=== PATIENT | female | born 1960 | race Caucasian/White ===

== ENCOUNTER 2018-05-04 13:45 | Outpatient (CLI) | payer MEDICARE, MEDICAID ==
--- NOTE | 2018-05-04 15:32 | RAD ---
TWO VIEWS OF THE CHEST: 05/04/18 COMPARISON: 03/09/13. HISTORY: Dyspnea. FINDINGS: Stable prominence of aortic arch. Azygos lobe and fissure again noted. No pneumothorax or pleural flu id. No focal consolidation or alveolar edema. Stable mild interstitial prominence with pulmonary hype rinflation. IMPRESSION: Stable chronic findings as described above. No acute findings are seen. POS: [facility]
== END 2018-05-04 13:46 | disposition home or self-care (01) ==
LOC: RAD 13:45
PROVIDERS: ATTEND Internal Medicine Pulmonary Disease
DX: R06.00 Dyspnea, unspecified (principal); R91.8 Other nonspecific abnormal finding of lung field; Q33.1 Accessory lobe of lung
CPT/HCPCS: 71046

== ENCOUNTER 2018-05-05 12:52 | Outpatient (CLI) | payer MEDICARE, MEDICAID ==
--- NOTE | 2018-05-05 14:03 | CT ---
HEAD CT WITHOUT CONTRAST: HISTORY: Facial numbness. COMPARISON: None. TECHNIQUE: A noncontrast head CT is performed from the skull base to the skull vertex. FINDINGS: No parenchymal hemorrhage. No extraaxial hematoma. No midline shift. The basilar cisterns are alvarado nt. Brain volume is age appropriate. Cortical degroot white matter differentiation is preserved. The ventricles and sulci are patent and symmetric. Adequate aeration of the sinuses and mastoid air cells. The calvarium is intact. IMPRESSION: No acute intracranial process. Further evaluation with nonemergent brain magnetic resonance imaging is recommended, if clinically warranted. POS: [facility]
== END 2018-05-05 12:53 | disposition home or self-care (01) ==
LOC: SCSCT 12:52
PROVIDERS: ATTEND Internal Medicine Geriatric Medicine
DX: R20.0 Anesthesia of skin (principal)
CPT/HCPCS: 70450; 72040

== ENCOUNTER 2018-05-16 20:30 | Outpatient (CLI) | payer MEDICARE, MEDICAID | END 2018-05-16 20:31 | disposition home or self-care (01) | LOC: SLEEPLAB 20:30 | PROVIDERS: ATTEND Internal Medicine Pulmonary Disease | DX: G47.33 Obstructive sleep apnea (adult) (pediatric) (principal); R06.83 Snoring; F32.9 Major depressive disorder, single episode, unspecified; J44.9 Chronic obstructive pulmonary disease, unspecified; E66.9 Obesity, unspecified; Z68.36 Body mass index [BMI] 36.0-36.9, adult | CPT/HCPCS: 95811 ==

== ENCOUNTER 2018-10-29 13:58 | Outpatient (CLI) | payer MEDICARE, MEDICAID | END 2018-10-29 13:59 | disposition home or self-care (01) | LOC: CTENTCT 13:58 | PROVIDERS: ATTEND Specialist | DX: J32.9 Chronic sinusitis, unspecified (principal) | CPT/HCPCS: 70486 ==